=== PATIENT | female | born 1980 | race Caucasian/White ===

== ENCOUNTER 2018-05-28 18:49 | Emergency (ER) | payer MEDICAID ==
[~2018-05-28] VITALS: Ht 165.1 cm; Wt 70.0 kg
[~2018-05-28 18:49] MED LIST: IBUP100T20
[2018-05-28 18:52] VITALS: BP 122/72
== END 2018-05-28 20:45 | disposition left against medical advice (07) ==
LOC: ER 18:49
DX: R10.9 Unspecified abdominal pain (principal); Z53.21 Procedure and treatment not carried out due to patient leaving prior to being seen by health care provider